=== PATIENT | female | born 1950 | race Caucasian/White ===

== ENCOUNTER 2017-07-06 01:39 | Emergency (ER) | payer OTHER ==
[2017-07-06 01:50] VITALS: BP 183/88
[2017-07-06] MEDS ORDERED: LORazepam 0.5 MG Tab PO ONE ×2 (01:58→02:38)
--- NOTE | 2017-07-06 02:42 | EDM.PDOC ---
ED HPI GENERAL MEDICAL PROBLEM - General Chief Complaint: Skin Complaint Stated Complaint: POSS LUMP ON RIGHT BREAST Time Seen by Provider: 07/06/17 01:56 Source of Information: Reports: Patient, RN Notes Reviewed - History of Present Illness INITIAL COMMENTS - FREE TEXT/NARRATIVE: 66-year-old female comes in with stress reaction, panic attack after discovering what appears to be a lump of her right breast a very short time ago. She notices a short time ago after or while showering. She is never noticed this before. There's been no discomfort. She does not do routine self breast exams nor has she ever had a mammogram because "there is no history of breast cancer my family". She has been feeling well recently with no unusual symptoms. However after discovering this lump of the right best she became extremely anxious did start having a panic attack triggering current visit to the ED. - Related Data Allergies Allergy/AdvReac Type Severity Reaction Status Date / Time Penicillins Allergy Vomiting Verified 07/06/17 01:48 Sulfa (Sulfonamide Allergy Hives Verified 12/25/13 21:09 Antibiotics) Home Meds: Home Meds Calcium Carbonate [Calcium] 600 mg PO DAILY 05/03/16 [History] Multivitamin [Multivitamins] 1 cap PO DAILY 05/03/16 [History] Past Medical History - Past Health History Medical/Surgical History: Denies Medical/Surgical History Psychiatric History: Reports: Panic Attack Social & Family History - Family History Family Medical History: Noncontributory - Tobacco Use Smoking Status *Q: Never Smoker Second Hand Smoke Exposure: No - Caffeine Use Caffeine Use: Reports: Coffee - Alcohol Use Days Per Week of Alcohol Use: 0 - Recreational Drug Use Recreational Drug Use: No ED ROS GENERAL - Review of Systems Review Of Systems: See Below Constitutional: Reports: No Symptoms HEENT: Reports: No Symptoms Respiratory: Reports: Shortness of Breath (No better) Cardiovascular: Denies: Chest Pain GI/Abdominal: Denies: Abdominal Pain, Nausea, Vomiting Musculoskeletal: Reports: No Symptoms Skin: Reports: No Symptoms Neurological: Reports: Dizziness (No better) ED EXAM, SKIN/RASH Exam: See Below General Appearance: Alert, Anxious (Improved from arrival to ED as short time ago) Head: Normocephalic, Facial Swelling Neck: Supple Respiratory/Chest: No Respiratory Distress, Lungs Clear, Other (On examination of the right breast there is a 1-2 cm area of increased density right lateral breast with slight dimpling visible, nontender., No other mass visible or palpable.) Cardiovascular: Regular Rate, Rhythm Extremities: Normal Inspection, Normal Range of Motion Neurological: Alert, Oriented, No Motor/Sensory Deficits Psychiatric: Anxious Skin: Warm, Dry, Normal Color Course - Vital Signs Last Recorded V/S: Last Vital Signs Temp 97.8 F 07/06/17 01:44 Pulse 68 07/06/17 01:44 Resp 18 07/06/17 01:44 BP 183/88 H 07/06/17 01:44 Pulse Ox 96 07/06/17 01:44 - Orders/Labs/Meds Meds: Medications Discontinued Medications Generic Name Dose Route Start Last Admin Trade Name Tien PRN Reason Stop Dose Admin Lorazepam 0.5 mg 07/06/17 01:58 07/06/17 02:04 Ativan PO 07/06/17 01:59 0.5 mg ONETIME ONE Administration Lorazepam 0.5 mg 07/06/17 02:38 07/06/17 02:45 Ativan PO 07/06/17 02:39 0.5 mg ONETIME ONE Administration - Re-Assessments/Exams Free Text/Narrative Re-Assessment/Exam: 07/06/17 03:11. We did give 0.5 mg Ativan by mouth initially. Appear more relaxed after that but states that she continues to feel very stressed and anxious, did not yet feel drowsy from that so did order another 0.5 mg to be dispensed and to give 0.25 mg orally now with the remaining 0.25 mg to go home with patient. Order for mammogram has been written. Discharge instructions as documented Departure - Departure Time of Disposition: 02:39 Disposition: Home, Self-Care 01 Condition: Fair Clinical Impression: Breast lump in female, Stress reaction, Panic attack - Discharge Information Instructions: Panic Attacks, [id number] Referrals: PCP,None [Primary Care Provider] - Forms: ED Department Discharge Additional Instructions: mamogram as soon as possible, Radiology will call you with a time for that this morning. ativan 0.25 mg 2 to 3 times daily for stress and anxiety, follow up with Dr Villarreal at our [facility] for results after your mamogram has been done. Call [phone] for appt. once you know when your mamogram will be done.
== END 2017-07-06 02:55 | disposition home or self-care (01) ==
LOC: JD.ED 01:39
DX: N63.10 Unspecified lump in the right breast, unspecified quadrant (principal); F43.0 Acute stress reaction; Z88.2 Allergy status to sulfonamides; Z79.899 Other long term (current) drug therapy; Z88.0 Allergy status to penicillin
CPT/HCPCS: 99283; A9270

== ENCOUNTER 2018-10-20 14:57 | Emergency (ER) | payer OTHER ==
[2018-10-20] MEDS ORDERED: Ketorolac 30 MG/ML SDV IM ONE (15:50)
[2018-10-20] MEDS ORDERED: Lidocaine 2% Jelly 10 ML Urojet MUCMEM ONE (15:51)
[2018-10-20] MEDS ORDERED: Diphtheria,Pertussis(Acell),Tetanus Vaccine 0.5 ML Syringe IM ONE (15:52)
--- NOTE | 2018-10-20 16:54 | CR ---
Right knee: Four views of the right knee were obtained. Comparison: No previous knee exam. Mildly comminuted and mildly displaced patellar fracture is seen. Fracture fragments are displaced up to 7 mm. Joint effusion is seen. Small osteophyte is seen off the lateral tibial margin. No additional abnormality is seen. Impression: 1. Patellar fracture and joint effusion. 2. Minimal degenerative change. Diagnostic code #3
--- NOTE | 2018-10-20 17:37 | EDM.PDOC ---
ED HPI GENERAL MEDICAL PROBLEM - General Chief Complaint: Lower Extremity Injury/Pain Stated Complaint: [facility] Time Seen by Provider: 10/20/18 15:15 Source of Information: Reports: Patient, Family History Limitations: Reports: No Limitations - History of Present Illness INITIAL COMMENTS - FREE TEXT/NARRATIVE: 68 yo F brought in via ambulance with comes in today for R knee pain s/ p fall. She states she was on the porch and tripped on a block and "rammed my knee into the seat of a patio chair". There was no twisting involved in the injury, just a straight fall on the patella. Her left knee also has some pain, but has only an abrasion. She says she feels "clicking and popping" with movement of the R knee and cannot bear weight. She currently rates her pain 5/ 10. She did not hurt anything else from the fall and did not have LOC or hit her head. No other symptoms at this time. She does not believe that her tetanus is UTD. Right Knee Pain Score (Numeric/FACES): 10 - Related Data Allergies Allergy/AdvReac Type Severity Reaction Status Date / Time Penicillins Allergy Vomiting Verified 10/20/18 15:06 Sulfa (Sulfonamide Allergy Hives Verified 10/20/18 15:06 Antibiotics) Home Meds: Home Meds Calcium Carbonate [Calcium] 600 mg PO DAILY 05/03/16 [History] Anastrozole [Arimidex] 1 mg PO DAILY 10/20/18 [History] Cholecalciferol (Vitamin D3) [Vitamin D3] 0 unit PO DAILY 10/20/18 [History] Zoledronic Acid in Water [Zometa 4 MG/100 ML] 4 mg IV ASDIRECTED 10/20/18 [ History] Past Medical History - Past Health History Medical/Surgical History: Denies Medical/Surgical History HEENT History: Reports: Impaired Vision Other HEENT History: wears contacts Respiratory History: Reports: Bronchitis, Recurrent Gastrointestinal History: Reports: GERD 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: Musculoskeletal History: Reports: Fracture Psychiatric History: Reports: Anxiety, Panic Attack Oncologic (Cancer) History: Reports: Breast - Infectious Disease History Infectious Disease History: Reports: Chicken Pox, Measles, Mumps Social & Family History - Family History Family Medical History: Noncontributory - Tobacco Use Smoking Status *Q: Never Smoker Second Hand Smoke Exposure: No - Caffeine Use Caffeine Use: Reports: Coffee, Soda - Recreational Drug Use Recreational Drug Use: No Review of Systems - Review of Systems Review Of Systems: ROS reveals no pertinent complaints other than HPI. ED EXAM, GENERAL - Physical Exam Exam: See Below Exam Limited By: No Limitations General Appearance: Alert, WD/WN, Mild Distress Eye Exam: Bilateral Eye: EOMI, Normal Inspection, PERRL Ears: Normal External Exam, Hearing Grossly Normal Head: Atraumatic, Normocephalic Neck: Normal Inspection, Supple, Non-Tender, Full Range of Motion Respiratory/Chest: No Respiratory Distress, Lungs Clear, Normal Breath Sounds, No Accessory Muscle Use, Chest Non-Tender Cardiovascular: Normal Peripheral Pulses, Regular Rate, Rhythm, No Edema, No Gallop, No JVD, No Murmur, No Rub Peripheral Pulses: 4+: Posterior Tibial (L), Posterior Tibial (R), Dorsalis Pedis (L), Dorsalis Pedis (R) Extremities: No Pedal Edema, Normal Capillary Refill, Joint Swelling (R knee), Limited Range of Motion (R knee), Increased Warmth (R knee), Redness (bilateral knees), Other (R knee TTP) Psychiatric: Normal Affect, Normal Mood Skin Exam: Warm, Dry, Intact, Erythema (R knee), Increased Warmth (R knee), Wound/Incision (abrasion to L knee), Other (edema to L knee) Course - Vital Signs Last Recorded V/S: Last Vital Signs Temp 97.9 F 10/20/18 17:55 Pulse 69 10/20/18 17:55 Resp 18 10/20/18 17:55 BP 161/71 H 10/20/18 17:55 Pulse Ox 98 10/20/18 17:55 - Orders/Labs/Meds Orders: Active Orders 24 hr Category Date Time Status Vaccines to be Administered [RC] PER UNIT ROUTINE Care 10/20/18 15:52 Active DME for Discharge [COMM] Routine Oth 10/20/18 17:32 Ordered Meds: Medications Discontinued Medications Generic Name Dose Route Start Last Admin Trade Name Freq PRN Reason Stop Dose Admin Diphtheria/Tetanus/Acell Pertussis 0.5 ml 10/20/18 15:52 10/20/18 16:25 Adacel IM 10/20/18 15:53 0.5 ml .ONCE ONE Administration Ketorolac Tromethamine 30 mg 10/20/18 15:50 10/20/18 16:23 Toradol IM 10/20/18 15:51 30 mg ONETIME ONE Administration Lidocaine HCl 10 ml 10/20/18 15:51 10/20/18 16:10 Xylocaine 2% Jelly MUCMEM 10/20/18 15:52 10 ml ONETIME ONE Administration Oxycodone/Acetaminophen 1 tab 10/20/18 18:03 10/20/18 18:08 Percocet 325-5 Mg PO 10/20/18 18:04 1 tab ONETIME ONE Administration - Re-Assessments/Exams Free Text/Narrative Re-Assessment/Exam: 10/20/18 15:44 Knee 4V Xray ordered 10/20/18 15:50 Toradol ordered for pain 10/20/18 15:52 Tetanus shot ordered 10/20/18 16:24 Knee Xray shows patellar fracture and joint effusion per Dr. Vazquez. Also reviewed by Dr. Barney and myself. 10/20/18 17:32 Percocet given for pain as Toradol did not help At this time, she has a fracture and will need to follow up with Dr. Peck next week. She will be given a knee immobilizer brace and crutches for now. I explained everything to her and her and they state they understand. She will be discharged home and given prescription for Percocet for pain as needed. Departure - Departure Time of Disposition: 17:32 Disposition: Home, Self-Care 01 Condition: Fair Clinical Impression: Patella fracture - Discharge Information *PRESCRIPTION DRUG MONITORING PROGRAM REVIEWED*: Not Applicable *COPY OF PRESCRIPTION DRUG MONITORING REPORT IN PATIENT ZAC: Not Applicable Instructions: Crutch Use, Adult, [id number], How to Use a Knee Immobilizer, [id number], Patellar Fracture, Adult Referrals: Carrie Villarreal MD [Primary Care Provider] - Forms: ED Department Discharge Additional Instructions: You were seen in the ED today for R knee pain after fall. You were found to have an abrasion to the left knee as well, which was cleaned and bandaged while here. You Xray reveals that you have fractured your patella (knee cap). You will need to follow up with an orthopedic surgeon by next week for further evaluation and treatment. You can call to make an appointment with orthopedic Dr. Peck. In the meantime, wear your knee brace and keep from weight bearing with crutches. Recommend rest, ice, elevation and over the counter ibuprofen for pain/inflammation relief. Please return to ED if new or worsening symptoms. - My Orders Last 24 Hours: My Active Orders 10/20/18 15:52 Vaccines to be Administered [RC] PER UNIT ROUTINE 10/20/18 17:32 DME for Discharge [COMM] Routine - Assessment/Plan Last 24 Hours: My Active Orders 10/20/18 15:52 Vaccines to be Administered [RC] PER UNIT ROUTINE 10/20/18 17:32 DME for Discharge [COMM] Routine
[2018-10-20] MEDS ORDERED: Acetaminophen/oxyCODONE 325-5 MG Tab PO ONE (18:03)
[2018-10-20 18:38] VITALS: BP 161/71
== END 2018-10-20 18:00 | disposition home or self-care (01) ==
LOC: JD.ED 14:57
DX: S82.001A Unspecified fracture of right patella, initial encounter for closed fracture (principal); W18.09XA Striking against other object with subsequent fall, initial encounter; Z88.0 Allergy status to penicillin; Z88.2 Allergy status to sulfonamides; Z79.899 Other long term (current) drug therapy
CPT/HCPCS: 73564; 90471; 90700; 96372; 99284; A9270; J1885; 99283

== ENCOUNTER 2020-02-09 19:47 | Emergency (ER) | payer OTHER ==
[2020-02-09 20:20] VITALS: BP 173/93; PULSE 65
[2020-02-09] MEDS ORDERED: Hydrocortisone 1% Crm 30 GM Tube TOP PRN (20:57)
--- NOTE | 2020-02-09 20:57 | EDM.PDOC ---
ED HPI GENERAL MEDICAL PROBLEM - General Chief Complaint: Allergic Reaction Stated Complaint: LT EYE SWELLING/ALLERGIC REACTION Time Seen by Provider: 02/09/20 20:38 Source of Information: Reports: Patient History Limitations: Reports: No Limitations - History of Present Illness INITIAL COMMENTS - FREE TEXT/NARRATIVE: This is a 69-year-old female. Today she was outside digging in the dirt and then she felt an irritation to her left eye and so she scratched it with her finger that had dirt on it. She noted a few hours afterwards that her eyelid began to swell and the inner canthus of that left eye began to swell as well. After dinner when her looked at the swelling he told her they needed to come to the ER. She denies any drainage from her eye. She denies any eye irritation. Is just the lid in the inner canthus that is swollen. She has a history of being allergic to many things including molds and fungus and things that you find in the dirt. She denies any other acute symptoms. Left Eye Pain Score (Numeric/FACES): 5 - Related Data Allergies Allergy/AdvReac Type Severity Reaction Status Date / Time Penicillins Allergy Severe Vomiting Verified 02/09/20 20:20 Sulfa (Sulfonamide Allergy Severe Hives Verified 02/09/20 20:20 Antibiotics) Home Meds: Home Meds Calcium Carbonate [Calcium] 600 mg PO DAILY 05/03/16 [History] Anastrozole [Arimidex] 1 mg PO DAILY 10/20/18 [History] Cholecalciferol (Vitamin D3) [Vitamin D3] 0 unit PO DAILY 10/20/18 [History] Zoledronic Acid in Water [Zometa 4 MG/100 ML] 4 mg IV ASDIRECTED 10/20/18 [History] Past Medical History - Past Health History Medical/Surgical History: Denies Medical/Surgical History HEENT History: Reports: Impaired Vision Other HEENT History: wears contacts Respiratory History: Reports: Bronchitis, Recurrent Gastrointestinal History: Reports: GERD 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: Musculoskeletal History: Reports: Fracture Psychiatric History: Reports: Anxiety, Panic Attack Oncologic (Cancer) History: Reports: Breast - Infectious Disease History Infectious Disease History: Reports: Chicken Pox, Measles, Mumps Social & Family History - Family History Family Medical History: Noncontributory - Tobacco Use Smoking Status *Q: Never Smoker Second Hand Smoke Exposure: No - Caffeine Use Caffeine Use: Reports: Coffee, Tea - Recreational Drug Use Recreational Drug Use: No ED ROS ALLERGIC REACTION - Review of Systems Review Of Systems: See Below Constitutional: Denies: Fever, Chills HEENT: Reports: Other (Left eyelid swelling) Respiratory: Denies: Shortness of Breath, Cough Cardiovascular: Denies: Chest Pain Endocrine: Reports: No Symptoms GI/Abdominal: Denies: Abdominal Pain : Reports: No Symptoms Musculoskeletal: Reports: No Symptoms Skin: Reports: Other (As per HPI) Neurological: Reports: No Symptoms Psychiatric: Reports: No Symptoms Hematologic/Lymphatic: Reports: No Symptoms ED EXAM GENERAL NO PERIP PULSE - Physical Exam Exam: See Below Exam Limited By: No Limitations General Appearance: Alert, WD/WN, No Apparent Distress Eye Exam: Left Eye: Other (She has a swollen upper lid and slightly swollen underneath the eye and also in the inner canthus. It looks like an allergic reaction because there is no inflammation. The eye itself appears to be clear with no obvious discharge and she denies any change in her vision.) Ears: Normal External Exam Nose: Normal Inspection Throat/Mouth: No Airway Compromise Head: Normocephalic Neck: Supple Respiratory/Chest: No Respiratory Distress Back Exam: Full Range of Motion Extremities: Normal Inspection, Normal Range of Motion Neurological: Alert, Oriented Psychiatric: Normal Affect, Normal Mood Skin Exam: Warm, Dry Course - Vital Signs Last Recorded V/S: Last Vital Signs Temp 98.3 F 02/09/20 20:14 Pulse 65 02/09/20 20:14 Resp 20 02/09/20 20:14 BP 173/93 H 02/09/20 20:14 Pulse Ox 98 02/09/20 20:14 - Orders/Labs/Meds Orders: Active Orders 24 hr Category Date Time Status Hydrocortisone [Hydrocortisone 1% Crm] Med 02/09/20 20:57 Ordered 30 gm TOP ASDIRECTED PRN Medication Orders Hydrocortisone (Hydrocortisone 1% Crm) 30 gm TOP ASDIRECTED PRN PRN Reason: Rash Last Admin: 02/09/20 21:05 Dose: 1 gm Documented by: LJ Meds: Medications Generic Name Dose Route Start Last Admin Trade Name Freq PRN Reason Stop Dose Admin Hydrocortisone 30 gm 02/09/20 20:57 02/09/20 21:05 Hydrocortisone 1% Crm TOP 1 gm ASDIRECTED PRN Administration Rash Discontinued Medications Generic Name Dose Route Start Last Admin Trade Name Tien PRN Reason Stop Dose Admin Hydrocortisone Confirm 02/09/20 21:01 Hydrocortisone 1% Crm Administered 02/09/20 21:02 Dose 30 gm TOP .STK-MED ONE - Re-Assessments/Exams Free Text/Narrative Re-Assessment/Exam: 02/09/20 21:07 I got 1% hydrocortisone cream and gently coated the swollen tissues but did not get in her eye. We thereafter placed a eye patch and some hypoallergenic tape to keep the patch on. She knows to take the patch off in the morning and to not rub her eye because it will cause the swelling to occur again. Departure - Departure Time of Disposition: 21:07 Disposition: Home, Self-Care 01 Condition: Good Clinical Impression: Swelling of left eyelid Contact dermatitis Qualifiers: Contact dermatitis type: allergic Contact dermatitis trigger: unspecified trigger Qualified Code(s): L23.9 - Allergic contact dermatitis, unspecified cause - Discharge Information *PRESCRIPTION DRUG MONITORING PROGRAM REVIEWED*: Not Applicable *COPY OF PRESCRIPTION DRUG MONITORING REPORT IN PATIENT ZAC: Not Applicable Instructions: Contact Dermatitis, [id number] Referrals: PCP,None [Primary Care Provider] - Forms: ED Department Discharge Additional Instructions: The eye patch on for overnight and then take it off in the morning, try not to rub your eye tomorrow because then it will swell again, recheck with your family doctor this coming week or return to the ER if needed Sepsis Event Note (ED) - Evaluation Sepsis Screening Result: No Definite Risk - Focused Exam Vital Signs: Vital Signs Temp Pulse Resp BP Pulse Ox 02/09/20 20:14 98.3 F 65 20 173/93 H 98 - My Orders Last 24 Hours: My Active Orders 02/09/20 20:57 Hydrocortisone [Hydrocortisone 1% Crm] 30 gm TOP ASDIRECTED PRN - Assessment/Plan Last 24 Hours: My Active Orders 02/09/20 20:57 Hydrocortisone [Hydrocortisone 1% Crm] 30 gm TOP ASDIRECTED PRN
[2020-02-09] MEDS ORDERED: Hydrocortisone 1% Crm 30 GM Tube TOP ONE (21:01)
== END 2020-02-09 21:18 | disposition home or self-care (01) ==
LOC: JD.ED 19:47
DX: L23.9 Allergic contact dermatitis, unspecified cause (principal); H02.89 Other specified disorders of eyelid; Z88.0 Allergy status to penicillin; Z88.2 Allergy status to sulfonamides; Z79.899 Other long term (current) drug therapy
CPT/HCPCS: 99283; A9270

== ENCOUNTER 2020-09-27 17:05 | Emergency (ER) | payer OTHER ==
[2020-09-27 17:20] VITALS: BP 187/103; PULSE 81
--- NOTE | 2020-09-27 20:30 | EDM.PDOC ---
ED HPI GENERAL MEDICAL PROBLEM - General Chief Complaint: Lower Extremity Injury/Pain Stated Complaint: LEG CRAMP Time Seen by Provider: 09/27/20 17:30 Source of Information: Reports: Patient, RN Notes Reviewed - History of Present Illness INITIAL COMMENTS - FREE TEXT/NARRATIVE: 70 yr old female comes in with R leg pain, swelling and bruising. She injured the leg in hinduism 5 days ago stepping down a step. She had sudden onset of pain at the time but pain, bruising and swelling has worsened over the past 3 days. Mild pain at rest, more severe pain with walking and wt bearing. No chest pain or difficulty breathing. Right Leg Pain Score (Numeric/FACES): 7 - Related Data Allergies Allergy/AdvReac Type Severity Reaction Status Date / Time Sulfa (Sulfonamide Allergy Severe Hives Verified 09/27/20 17:20 Antibiotics) Penicillins AdvReac Severe Vomiting Verified 09/27/20 17:20 Home Meds: Home Meds Calcium Carbonate [Calcium] 600 mg PO DAILY 05/03/16 [History] Anastrozole [Arimidex] 1 mg PO DAILY 10/20/18 [History] Cholecalciferol (Vitamin D3) [Vitamin D3] 0 unit PO DAILY 10/20/18 [History] Zoledronic Acid in Water [Zometa 4 MG/100 ML] 4 mg IV ASDIRECTED 10/20/18 [History] Cyclobenzaprine [Flexeril] 10 mg PO TID 09/27/20 [History] Past Medical History - Past Health History Medical/Surgical History: Denies Medical/Surgical History HEENT History: Reports: Impaired Vision Other HEENT History: wears contacts Respiratory History: Reports: Bronchitis, Recurrent Gastrointestinal History: Reports: GERD 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 Social & Family History - Family History Family Medical History: No Pertinent Family History - Tobacco Use Tobacco Use Status *Q: Never Tobacco User - Caffeine Use Caffeine Use: Reports: Coffee - Recreational Drug Use Recreational Drug Use: No Review of Systems - Review of Systems Review Of Systems: See Below Constitutional: Denies: Chills, Diaphoresis, Fever Respiratory: Denies: Shortness of Breath, Pleuritic Chest Pain Cardiovascular: Denies: Chest Pain GI/Abdominal: Denies: Abdominal Pain, Nausea, Vomiting Musculoskeletal: Reports: Leg Pain Skin: Reports: Bruising (R ant. and post leg) Neurological: Denies: Numbness, Tingling, Weakness ED EXAM, GENERAL - Physical Exam Exam: See Below General Appearance: Alert, No Apparent Distress (at rest) Head: Atraumatic Neck: Supple Respiratory/Chest: No Respiratory Distress, Lungs Clear, Normal Breath Sounds Cardiovascular: Regular Rate, Rhythm Extremities: Leg Pain (there is mild diffuse swelling of her R proximal lower leg, very mild bruising ant and post lower leg just below the knee, knee itself is nontender). No: Increased Warmth, Redness Skin Exam: Warm, Dry Course - Vital Signs Last Recorded V/S: Last Vital Signs Temp 97.6 F 09/27/20 17:17 Pulse 81 09/27/20 17:17 Resp 16 09/27/20 17:17 BP 187/103 H 09/27/20 17:17 Pulse Ox 97 09/27/20 17:17 - Orders/Labs/Meds Orders: Active Orders 24 hr Category Date Time Status VL Duplex Lwr Ext Veins Ltd Rt [US] Stat Exams 09/27/20 17:44 Taken Labs: Laboratory Tests 09/27/20 09/27/20 Range/Units 18:00 18:00 WBC 6.59 (3.98-10.04) K/mm3 RBC 4.68 (3.98-5.22) M/mm3 Hgb 13.7 D (11.2-15.7) gm/dl Hct 40.5 (34.1-44.9) % MCV 86.5 (79.4-94.8) fl MCH 29.3 (25.6-32.2) pg MCHC 33.8 (32.2-35.5) g/dl RDW Std Deviation 39.5 (36.4-46.3) fL Plt Count 372 H (182-369) K/mm3 MPV 9.4 (9.4-12.3) fl Neut % (Auto) 58.9 (34.0-71.1) % Lymph % (Auto) 25.2 (19.3-51.7) % Cottle % (Auto) 11.1 (4.7-12.5) % Eos % (Auto) 4.1 (0.7-5.8) Baso % (Auto) 0.5 (0.1-1.2) % Neut # (Auto) 3.89 (1.56-6.13) K/mm3 Lymph # (Auto) 1.66 (1.18-3.74) K/mm3 Cottle # (Auto) 0.73 H (0.24-0.36) K/mm3 Eos # (Auto) 0.27 (0.04-0.36) K/mm3 Baso # (Auto) 0.03 (0.01-0.08) K/mm3 Sodium 144 (136-145) mEq/L Potassium 3.9 (3.5-5.1) mEq/L Chloride 106 (98-107) mEq/L Carbon Dioxide 26 (21-32) mEq/L Anion Gap 15.9 H (5-15) BUN 14 (7-18) mg/dL Creatinine 0.9 (0.55-1.02) mg/dL Est Cr Clr Drug Dosing 46.00 mL/min Estimated GFR (MDRD) > 60 (>60) mL/min BUN/Creatinine Ratio 15.6 (14-18) Glucose 89 (80-115) mg/dL Calcium 9.3 (8.5-10.1) mg/dL Total Bilirubin 1.3 H (0.2-1.0) mg/dL AST 19 (15-37) U/L ALT 23 (14-59) U/L Alkaline Phosphatase 71 (46-116) U/L Total Protein 7.3 (6.4-8.2) g/dl Albumin 3.8 (3.4-5.0) g/dl Globulin 3.5 gm/dL Albumin/Globulin Ratio 1.1 (1-2) - Re-Assessments/Exams Free Text/Narrative Re-Assessment/Exam: 09/27/20 20:35 US of R lower leg shows no evidence for DVT, labs all relatively nl, discharge instr. as documented. Departure - Departure Time of Disposition: 20:28 Disposition: Home, Self-Care 01 Condition: Fair Clinical Impression: Muscle strain, Leg pain, right - Discharge Information Referrals: PCP,None [Primary Care Provider] - Forms: ED Department Discharge Additional Instructions: Marshall wrap R lower extrem. Elevate as much as possible and continue with frequent ice packs the next few days. Use walker when able until pain and swel ling resolving. Tylenol as needed. Follow up clinic in about 10 days for recheck. Return to ED as needed if symptoms worsening in any way. Sepsis Event Note (ED) - Evaluation Sepsis Screening Result: No Definite Risk - Focused Exam Vital Signs: Vital Signs Temp Pulse Resp BP Pulse Ox 09/27/20 17:17 97.6 F 81 16 187/103 H 97 - My Orders Last 24 Hours: My Active Orders 09/27/20 17:44 VL Duplex Lwr Ext Veins Ltd Rt [US] Stat - Assessment/Plan Last 24 Hours: My Active Orders 09/27/20 17:44 VL Duplex Lwr Ext Veins Ltd Rt [US] Stat
--- NOTE | 2020-09-29 09:26 | US ---
Right lower extremity deep venous ultrasound: Duplex and color Doppler evaluation was obtained of the right common femoral, proximal greater saphenous, superficial femoral, popliteal, tibial and peroneal veins. Left common femoral vein was also evaluated. Comparison: No prior venous imaging is available. Findings: Abnormality is noted within the medial right knee and calf with measurements of 10.4 x 2.3 x 4.7 cm. This could represent a mixed old hematoma but could also represent a mass. Deep veins show normal phasic flow, augmentation and compression. Impression: 1. Findings within the medial calf and knee. If this finding is acute, repeat ultrasound could be obtained in 3-4 months. If this has been present for a more extended time, MRI (without and with intravenous contrast) is recommended. 2. No findings of deep venous thrombosis within the right lower extremity or within the left common femoral vein. 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
== END 2020-09-27 20:36 | disposition home or self-care (01) ==
LOC: JD.ED 17:05
DX: S86.911A Strain of unspecified muscle(s) and tendon(s) at lower leg level, right leg, initial encounter (principal); E66.9 Obesity, unspecified; Z68.33 Body mass index [BMI] 33.0-33.9, adult; Z88.2 Allergy status to sulfonamides; Z88.0 Allergy status to penicillin; Z79.899 Other long term (current) drug therapy
CPT/HCPCS: 36415; 80053; 85025; 93971-26-RT; 93971-RT; 99283; 99284-25

== ENCOUNTER 2021-02-03 06:58 | Emergency (ER) | payer OTHER, MEDICARE ==
[2021-02-03 07:21] VITALS: BP 144/75; PULSE 66
[2021-02-03] MEDS ORDERED: Sodium Chloride 0.9% 10 ML Syringe FLUSH PRN (07:27)
--- NOTE | 2021-02-03 07:28 | EDM.PDOC ---
ED HPI GENERAL MEDICAL PROBLEM - General Chief Complaint: Cardiovascular Problem Stated Complaint: LIGHTHEADED/HIGH BP Time Seen by Provider: 02/03/21 07:27 Source of Information: Reports: Patient, RN Notes Reviewed - History of Present Illness INITIAL COMMENTS - FREE TEXT/NARRATIVE: 70 yr old female comes in with severe stress/anxiety. She has been stressed out about her 's health which turned out to be OK and now stressed out about her ill dog. Has been feeling some palpitations. Chest feels heavy and tight. Not feeling well in general for about the past week. No known hx of CAD, Htn other current medical problems. Previous hx breast cancer. She is feeling stressed enough that she has been having some suicidal thoughts. No plan. She really does not want to . She does feel she needs help beyond what she can do for herself. She also has only been sleeping about "2 hrs a night". Chest Pain Score (Numeric/FACES): 3 - Related Data Allergies Allergy/AdvReac Type Severity Reaction Status Date / Time Sulfa (Sulfonamide Allergy Severe Hives Verified 02/03/21 07:14 Antibiotics) Penicillins AdvReac Severe Vomiting Verified 02/03/21 07:14 Home Meds: Home Meds Calcium Carbonate [Calcium] 600 mg PO DAILY 05/03/16 [History] Anastrozole [Arimidex] 1 mg PO DAILY 10/20/18 [History] Cholecalciferol (Vitamin D3) [Vitamin D3] 0 unit PO DAILY 10/20/18 [History] Zoledronic Acid in Water [Zometa 4 MG/100 ML] 4 mg IV ASDIRECTED 10/20/18 [History] LORazepam [Ativan] 0.5 mg PO Q12HR #14 tablet 02/03/21 [Rx] Past Medical History - Past Health History Medical/Surgical History: Denies Medical/Surgical History HEENT History: Reports: Impaired Vision Other HEENT History: wears contacts Respiratory History: Reports: Bronchitis, Recurrent Gastrointestinal History: Reports: GERD 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 Social & Family History - Family History Family Medical History: No Pertinent Family History - Caffeine Use Caffeine Use: Reports: Coffee ED ROS GENERAL - Review of Systems Review Of Systems: See Below Constitutional: Denies: Fever, Chills HEENT: Reports: No Symptoms Respiratory: Denies: Shortness of Breath Cardiovascular: Reports: Chest Pain, Palpitations Endocrine: Reports: Fatigue GI/Abdominal: Denies: Abdominal Pain, Nausea, Vomiting Musculoskeletal: Reports: No Symptoms Skin: Reports: No Symptoms Neurological: Reports: No Symptoms ED EXAM, GENERAL - Physical Exam Exam: See Below General Appearance: Alert, Anxious, Mild Distress Throat/Mouth: Normal Inspection Head: Other (Slight swelling, bruising upper mid forhead from "hitting my head against the wall") Neck: Supple Respiratory/Chest: No Respiratory Distress, Lungs Clear, Normal Breath Sounds Cardiovascular: Regular Rate, Rhythm Extremities: Normal Inspection, Normal Range of Motion Neurological: Alert, Oriented, No Motor/Sensory Deficits Psychiatric: Normal Affect, Normal Mood, Anxious Skin Exam: Warm, Dry, Normal Color #1 Interpretation EKG Date: 02/03/21 Rhythm: NSR [place]: Normal P-Wave: Present QRS: Normal ST-T: Normal Course - Vital Signs Last Recorded V/S: Last Vital Signs Temp 96.7 F L 02/03/21 07:10 Pulse 66 02/03/21 07:10 Resp 16 02/03/21 07:10 BP 144/75 H 02/03/21 07:10 Pulse Ox 95 02/03/21 07:10 - Orders/Labs/Meds Orders: Active Orders 24 hr Category Date Time Status Peripheral IV Care [RC] . DIRECTED Care 02/03/21 07:28 Active Chest 1V Frontal [CR] Stat Exams 02/03/21 07:28 Taken Sodium Chloride 0.9% [Saline Flush] Med 02/03/21 07:27 Active 10 ml FLUSH ASDIRECTED PRN Peripheral IV Insertion Adult [OM.PC] Stat Oth 02/03/21 07:28 Ordered EKG 12 Lead [EK] Stat Ther 02/03/21 07:27 Ordered Medication Orders Sodium Chloride (Sodium Chloride 0.9% 10 Ml Syringe) 10 ml FLUSH ASDIRECTED PRN PRN Reason: Keep Vein Open Last Admin: 02/03/21 07:39 Dose: 10 ml Documented by: JAKE Labs: Laboratory Tests 02/03/21 02/03/21 02/03/21 Range/Units 07:35 07:35 07:35 WBC 5.45 (3.98-10.04) K/mm3 RBC 5.01 (3.98-5.22) M/mm3 Hgb 14.9 (11.2-15.7) gm/dl Hct 43.3 (34.1-44.9) % MCV 86.4 (79.4-94.8) fl MCH 29.7 (25.6-32.2) pg MCHC 34.4 (32.2-35.5) g/dl RDW Std Deviation 40.6 (36.4-46.3) fL Plt Count 324 (182-369) K/mm3 MPV 9.6 (9.4-12.3) fl Neut % (Auto) 71.5 H (34.0-71.1) % Lymph % (Auto) 16.1 L (19.3-51.7) % [place] % (Auto) 9.4 (4.7-12.5) % Eos % (Auto) 2.4 (0.7-5.8) Baso % (Auto) 0.6 (0.1-1.2) % Neut # (Auto) 3.90 (1.56-6.13) K/mm3 Lymph # (Auto) 0.88 L (1.18-3.74) K/mm3 [place] # (Auto) 0.51 H (0.24-0.36) K/mm3 Eos # (Auto) 0.13 (0.04-0.36) K/mm3 Baso # (Auto) 0.03 (0.01-0.08) K/mm3 Sodium 145 (136-145) mEq/L Potassium 4.1 (3.5-5.1) mEq/L Chloride 109 H (98-107) mEq/L Carbon Dioxide 24 (21-32) mEq/L Anion Gap 16.1 H (5-15) BUN 14 (7-18) mg/dL Creatinine 1.0 (0.55-1.02) mg/dL Est Cr Clr Drug Dosing 41.40 mL/min Estimated GFR (MDRD) 55 (>60) mL/min BUN/Creatinine Ratio 14.0 (14-18) Glucose 105 H (70-99) mg/dL Calcium 8.7 (8.5-10.1) mg/dL Total Bilirubin 1.9 H (0.2-1.0) mg/dL AST 23 (15-37) U/L ALT 25 (14-59) U/L Alkaline Phosphatase 61 (46-116) U/L Troponin I < 0.017 (0.00-0.056) ng/mL Total Protein 7.1 (6.4-8.2) g/dl Albumin 3.8 (3.4-5.0) g/dl Globulin 3.3 gm/dL Albumin/Globulin Ratio 1.2 (1-2) TSH 3rd Generation 1.521 (0.358-3.74) uIU/mL Meds: Medications Generic Name Dose Route Start Last Admin Trade Name Freq PRN Reason Stop Dose Admin Sodium Chloride 10 ml 02/03/21 07:27 02/03/21 07:39 Sodium Chloride 0.9% 10 Ml Syringe FLUSH 10 ml ASDIRECTED PRN Administration Keep Vein Open Discontinued Medications Generic Name Dose Route Start Last Admin Trade Name Freq PRN Reason Stop Dose Admin Lorazepam 0.5 mg 02/03/21 07:34 02/03/21 07:45 Lorazepam 0.5 Mg Tab PO 02/03/21 07:35 0.5 mg ONETIME ONE Administration - Re-Assessments/Exams Free Text/Narrative Re-Assessment/Exam: 02/03/21 09:11 Occasional PAC's on the moniter, EKG, trop nl. Her stress, anxiety, depression to the point of suicidal thoughts is the main problem/concern. As noted she has no plan, does not really want to . She also is not sleeping well which is not helping. She has not seen a counselor or Psychiatrist any time recently. She does actively exercise. Have given 0.5 mg ativan and that does seem to be helping. I have discussed transfer for inpatient eval. vs going home on ativan bid and get set up for telemed psych consult. She feels safe to go home and would prefer to do that. Discharge instr. as documented. Departure - Departure Time of Disposition: 08:59 Disposition: Home, Self-Care 01 Clinical Impression: Stress and adjustment reaction, Suicidal ideation Depression Qualifiers: Depression Type: unspecified Qualified Code(s): F32.9 - Major depressive disorder, single episode, unspecified Insomnia Qualifiers: Insomnia type: unspecified Qualified Code(s): G47.00 - Insomnia, unspecified Prescriptions: LORazepam [Ativan] 0.5 mg PO Q12HR #14 tablet Instructions: Adjustment Disorder, Adult Referrals: PCP,None [Primary Care Provider] - Forms: ED Department Discharge Additional Instructions: You have been given ativan 0.5 mg orally here in the ED. Continue that twice daily for now. If it does start making you too drowsy during the day go to 1/2 or even a 1/4 tablet in the morning. Continue the 0.5 mg in the evening to help you sleep. Prescription has been sent to [facility]. Telephone Psych. consult with Dr Kline, Psychiatrist strongly recomended. Call [phone] tomorrow AM to get that set up next available appointment. You can also go to [facility] 8 AM any morning Wednesday through Wednesday for open enrollment for local counseling, further help and treatment. Return to ED at any time for any escalation of suicidal thoughts and for personal safety as needed. Sepsis Event Note (ED) - Evaluation Sepsis Screening Result: No Definite Risk - Focused Exam Vital Signs: Vital Signs Temp Pulse Resp BP Pulse Ox 02/03/21 07:10 96.7 F L 66 16 144/75 H 95 - My Orders Last 24 Hours: My Active Orders 02/03/21 07:27 Sodium Chloride 0.9% [Saline Flush] 10 ml FLUSH ASDIRECTED PRN EKG 12 Lead [EK] Stat 02/03/21 07:28 Peripheral IV Care [RC] . DIRECTED Chest 1V Frontal [CR] Stat Peripheral IV Insertion Adult [OM.PC] Stat - Assessment/Plan Last 24 Hours: My Active Orders 02/03/21 07:27 Sodium Chloride 0.9% [Saline Flush] 10 ml FLUSH ASDIRECTED PRN EKG 12 Lead [EK] Stat 02/03/21 07:28 Peripheral IV Care [RC] . DIRECTED Chest 1V Frontal [CR] Stat Peripheral IV Insertion Adult [OM.PC] Stat
[2021-02-03] MEDS ORDERED: LORazepam 0.5 MG Tab PO ONE (07:34)
--- NOTE | 2021-02-03 13:08 | CR ---
Chest: Portable view of the chest was obtained. Comparison: Prior chest x-ray of 05/17/14. Heart size and mediastinum are normal. Lungs are clear with no acute parenchymal change. Degenerative change is seen within the left shoulder which is an interval change from prior chest x-ray. Impression: 1. 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 2. Nothing acute is appreciated on portable chest x-ray. Diagnostic code #2
== END 2021-02-03 09:10 | disposition home or self-care (01) ==
LOC: JD.ED 06:58
DX: F43.9 Reaction to severe stress, unspecified (principal); F43.20 Adjustment disorder, unspecified; G47.00 Insomnia, unspecified; E66.9 Obesity, unspecified; Z68.31 Body mass index [BMI] 31.0-31.9, adult; Z88.2 Allergy status to sulfonamides; Z88.0 Allergy status to penicillin; Z79.899 Other long term (current) drug therapy
CPT/HCPCS: 36415; 71045; 80053; 84443; 84484; 85025; 93005; 99285; A9270; 93010; 99284

== ENCOUNTER 2022-01-25 18:25 | Emergency (ER) | payer OTHER, MEDICARE ==
[2022-01-25 18:44] VITALS: BP 172/86; PULSE 77
[2022-01-25] MEDS ORDERED: Sodium Chloride 0.9% 10 ML Syringe FLUSH PRN (19:09)
[2022-01-25 19:50] LABS: ESTIMATED GFR 68 mL/min (>60)
[2022-01-25] MEDS ORDERED: Ondansetron 4 MG/2 ML SDV IVPUSH ONE (19:53)
[2022-01-25] MEDS ORDERED: Sodium Chloride 0.9% 1,000 ML IV STA (19:53)
[2022-01-25] MEDS ORDERED: Ketorolac 30 MG/ML SDV IVPUSH ONE (19:54)
[2022-01-25] MEDS ORDERED: HYDROmorphone 0.5 MG/0.5 ML Syringe IVPUSH ONE (21:52)
== END 2022-01-25 22:43 | disposition home or self-care (01) ==
LOC: JD.ED 18:25
DX: D27.0 Benign neoplasm of right ovary (principal); D25.9 Leiomyoma of uterus, unspecified; K21.9 Gastro-esophageal reflux disease without esophagitis; E66.9 Obesity, unspecified; Z68.31 Body mass index [BMI] 31.0-31.9, adult; Z88.2 Allergy status to sulfonamides; Z88.0 Allergy status to penicillin
CPT/HCPCS: 36415; 74177; 76830; 80053; 81001; 85025; 86140; 96361; 96374; 96375; 99284; J1170; J1885; J2405; J3490; J7030

== ENCOUNTER 2022-01-26 18:51 | Emergency (ER) | payer OTHER, MEDICARE ==
[2022-01-26 19:13] VITALS: BP 184/78; PULSE 107
[2022-01-26] MEDS ORDERED: Sodium Chloride 0.9% 10 ML Syringe FLUSH PRN (19:51)
[2022-01-26] MEDS ORDERED: Ketorolac 30 MG/ML SDV IVPUSH ONE (19:52)
[2022-01-26] MEDS ORDERED: HYDROmorphone 0.5 MG/0.5 ML Syringe IVPUSH ONE (19:52)
[2022-01-26] MEDS ORDERED: Sodium Chloride 0.9% 1,000 ML IV SCH (20:00)
[2022-01-26 20:53] LABS: ESTIMATED GFR 68 mL/min (>60)
[2022-01-26] MEDS ORDERED: Ondansetron 4 MG/2 ML SDV IVPUSH ONE (20:56)
== END 2022-01-26 21:48 | disposition home or self-care (01) ==
LOC: JD.ED 18:51
DX: D27.0 Benign neoplasm of right ovary (principal); K21.9 Gastro-esophageal reflux disease without esophagitis; E66.9 Obesity, unspecified; Z68.30 Body mass index [BMI] 30.0-30.9, adult; Z88.0 Allergy status to penicillin
CPT/HCPCS: 36415; 74018; 80053; 83690; 85025; 96374; 96375; 99284; J1170; J1885; J2405; J3490; J7030

== ENCOUNTER 2022-03-10 07:20 | Day surgery (SDC) | payer OTHER, MEDICARE ==
[~2022-03-10 07:20] MED LIST: Lactated Ringers 1,000 ML IV SCH; Lidocaine 1%/Sod Bicarbonate in NS 8.4% 1 ML Syringe IDERM PRN; Sodium Chloride 0.9% 10 ML Syringe FLUSH PRN; Sodium Chloride 0.9% 10 ML Syringe FLUSH SCH
[2022-03-10] MEDS ORDERED: Lidocaine 1% with EPINEPHrine 1:100,000 20 ML MDV ONE (08:43)
[2022-03-10] MEDS ORDERED: Bupivacaine 0.5% 30 ML SDV ONE (08:43)
[2022-03-10] MEDS ORDERED: Rocuronium 50 MG/5 ML Vial ONE (08:45)
[2022-03-10] MEDS ORDERED: fentaNYL 250 MCG/5 ML SDV ONE (08:45)
[2022-03-10] MEDS ORDERED: Ondansetron 4 MG/2 ML SDV ONE (08:45)
[2022-03-10] MEDS ORDERED: Propofol 200 MG/20 ML SDV ONE (08:45)
[2022-03-10] MEDS ORDERED: Lidocaine 1% 2 ML ONE (08:46)
[2022-03-10] MEDS ORDERED: Scopolamine 1.5 MG Transdermal Patch TOP ONE (09:30)
[2022-03-10] MEDS ORDERED: Sugammadex Sodium 200 MG/2 ML VIAL ONE (10:07)
[2022-03-10] MEDS ORDERED: ceFAZolin 2 GM Vial ONE (10:07)
[2022-03-10] MEDS ORDERED: fentaNYL 100 MCG/2 ML SDV IVPUSH PRN (10:17)
[2022-03-10] MEDS ORDERED: HYDROmorphone 0.5 MG/0.5 ML Syringe IVPUSH PRN (10:17)
[2022-03-10] MEDS ORDERED: Ondansetron 4 MG/2 ML SDV IVPUSH PRN (10:17)
[2022-03-10] MEDS ORDERED: traMADol 50 MG Tab PO ONE (12:15)
[2022-03-10] MEDS ORDERED: Acetaminophen/oxyCODONE 325-5 MG Tab PO ONE (12:30)
[2022-03-10 13:22] VITALS: PULSE 60
[2022-03-10 14:47] VITALS: BP 116/86
== END 2022-03-10 15:30 | disposition home or self-care (01) ==
LOC: JD.SDS 07:20
PROVIDERS: ATTEND Obstetrics & Gynecology
DX: D25.1 Intramural leiomyoma of uterus (principal); D25.2 Subserosal leiomyoma of uterus; D28.2 Benign neoplasm of uterine tubes and ligaments; D27.1 Benign neoplasm of left ovary; N72 Inflammatory disease of cervix uteri; N87.9 Dysplasia of cervix uteri, unspecified; N80.0 Endometriosis of uterus; N83.8 Other noninflammatory disorders of ovary, fallopian tube and broad ligament; I10 Essential (primary) hypertension; F41.9 Anxiety disorder, unspecified; R00.0 Tachycardia, unspecified; G43.909 Migraine, unspecified, not intractable, without status migrainosus; F90.9 Attention-deficit hyperactivity disorder, unspecified type; K21.9 Gastro-esophageal reflux disease without esophagitis; E66.9 Obesity, unspecified; Z79.83 Long term (current) use of bisphosphonates; Z79.811 Long term (current) use of aromatase inhibitors; Z79.891 Long term (current) use of opiate analgesic; Z79.2 Long term (current) use of antibiotics; Z79.52 Long term (current) use of systemic steroids; Z88.0 Allergy status to penicillin; Z88.2 Allergy status to sulfonamides; Z91.018 Allergy to other foods; Z91.011 Allergy to milk products; Z91.048 Other nonmedicinal substance allergy status; Z98.890 Other specified postprocedural states; Z68.32 Body mass index [BMI] 32.0-32.9, adult; Z85.3 Personal history of malignant neoplasm of breast
CPT/HCPCS: 36415; 58552; 80048; 85025; 86850; 86900; 86901; 93005; A9270; J0690; J2405; J2704; J3010; J3490; J7120; 00944; 99100

== ENCOUNTER 2022-05-01 16:22 | Emergency (ER) | payer OTHER, MEDICARE | END 2022-05-01 20:00 | disposition left against medical advice (07) | LOC: JD.ED 16:22 | DX: Z53.21 Procedure and treatment not carried out due to patient leaving prior to being seen by health care provider (principal) ==

== ENCOUNTER 2023-04-21 23:31 | Emergency (ER) | payer BC, MEDICARE ==
[2023-04-22] MEDS ORDERED: Ketorolac 60 MG/2 ML SDV IM ONE (00:43)
[2023-04-22 01:36] VITALS: BP 136/88; PULSE 70
== END 2023-04-22 01:15 | disposition home or self-care (01) ==
LOC: JD.ED 23:31
DX: S83.91XA Sprain of unspecified site of right knee, initial encounter (principal); Z87.891 Personal history of nicotine dependence; Z91.048 Other nonmedicinal substance allergy status; Z88.1 Allergy status to other antibiotic agents; Z91.018 Allergy to other foods; Z91.011 Allergy to milk products; Z88.0 Allergy status to penicillin; Z79.899 Other long term (current) drug therapy; X50.9XXA Other and unspecified overexertion or strenuous movements or postures, initial encounter
CPT/HCPCS: 73562; 96372; 99283; J1885

== ENCOUNTER 2023-06-13 07:54 | Emergency (ER) | payer BC, MEDICARE ==
[2023-06-13] MEDS ORDERED: Sodium Chloride 0.9% 10 ML Syringe FLUSH PRN (08:37)
[2023-06-13] MEDS ORDERED: Diclofenac Sodium 1% Gel 100 GM Tube TOP ONE (08:37)
[2023-06-13 09:22] LABS: BASOPHILS PERCENT AUTO 1.1 % (0.0-1.0); EOSINOPHILS PERCENT AUTO 3.8 % (0.0-6.0); HEMATOCRIT 40.8 % (37.0-47.0); HEMOGLOBIN 13.2 gm/dl (12.0-16.0); IMMATURE GRAN PERCENT AUTO 0.3 % (0.0-0.4); LYMPHOCYTES PERCENT AUTO 14.6 % (24.0-44.0); MEAN CORPUSCULAR HGB CONC 32.4 g/dl (32.0-36.0); MEAN CORPUSCULAR VOLUME 86.4 fl (83.0-99.0); MEAN PLATELET VOLUME 8.6 fl (9.4-12.3); MONOCYTES PERCENT AUTO 10.2 % (0.0-8.0); NEUTROPHILS ABSOLUTE AUTO 4.5 K/mm3 (1.8-7.7); PLATELET COUNT,PLT 380 K/mm3 (150-400); RED BLOOD CELL COUNT 4.72 M/mm3 (4.10-5.30); WHITE BLOOD CELL COUNT,WBC 6.38 K/mm3 (3.9-11.3)
[2023-06-13 09:23] LABS: BASOPHILS ABSOLUTE AUTO 0.1 K/mm3 (0.0-0.2); EOSINOPHILS ABSOLUTE AUTO 0.2 K/mm3 (0.0-0.4); IMMATURE GRAN ABSOLUTE AUTO 0.02 K/mm3 (0.00-0.05); LYMPHOCYTES ABSOLUTE AUTO 0.9 K/mm3 (1.0-4.8); MONOCYTES ABSOLUTE AUTO 0.7 K/mm3 (0.0-0.8)
[2023-06-13 09:44] LABS: A/G RATIO 0.8 (1-2); ALBUMIN 3.3 g/dl (3.4-5.0); ANION GAP 14.9 (5-15); BILIRUBIN TOTAL 0.8 mg/dL (0.2-1.0); BUN/CREATININE RATIO 17.8 (14-18); CALCIUM 9.2 mg/dL (8.5-10.1); CREATININE 0.9 mg/dL (0.55-1.02); EST CRCL DRUG DOSING (CG) 42.64 mL/min; POTASSIUM,K 3.9 mEq/L (3.5-5.1); PROTEIN TOTAL,TP 7.3 g/dl (6.4-8.2)
[2023-06-13 10:12] LABS: APPEARANCE,URINE CLEAR (Clear); BILIRUBIN,URINE NEGATIVE (Negative); COLOR,URINE YELLOW (Yellow); GLUCOSE,URINE NEGATIVE (Negative); KETONES,URINE 1+ (Negative); LEUKOCYTE ESTERASE,URINE 1+ (Negative); NITRITE,URINE NEGATIVE (Negative); OCCULT BLOOD,URINE TRACE-INTACT (Negative); PROTEIN,URINE TRACE (Negative); UROBILINOGEN,URINE 0.2 (0.2-1.0)
[2023-06-13 10:22] LABS: BACTERIA,URINE MODERATE /hpf (FEW); MUCUS,URINE MODERATE /hpf (FEW)
[2023-06-13 11:26] VITALS: BP 169/98; PULSE 66
== END 2023-06-13 10:20 | disposition home or self-care (01) ==
LOC: JD.ED 07:54
DX: M94.0 Chondrocostal junction syndrome [Tietze] (principal); Z86.16 Personal history of COVID-19; Z88.0 Allergy status to penicillin; Z88.2 Allergy status to sulfonamides; Z88.8 Allergy status to other drugs, medicaments and biological substances; Z91.048 Other nonmedicinal substance allergy status; Z91.018 Allergy to other foods
CPT/HCPCS: 36415; 71046; 80053; 81001; 83735; 84484; 85025; 93005; 99285; A9270; 93010; 99283

== ENCOUNTER 2024-02-18 06:40 | Emergency (ER) | payer BC, MEDICARE ==
[2024-02-18] MEDS ORDERED: Lactated Ringers 1,000 ML ONE (07:23)
[2024-02-18] MEDS ORDERED: LORazepam 2 MG/ML SDV ONE (07:23)
[2024-02-18] MEDS ORDERED: Metoclopramide 10 MG/2 ML SDV ONE (07:24)
[2024-02-18 11:56] LABS: BASOPHILS PERCENT AUTO 0.6 % (0.0-1.0); EOSINOPHILS ABSOLUTE AUTO 0.3 K/mm3 (0.0-0.4); EOSINOPHILS PERCENT AUTO 4.5 % (0.0-6.0); HEMATOCRIT 40.9 % (37.0-47.0); IMMATURE GRAN ABSOLUTE AUTO 0.02 K/mm3 (0.00-0.05); IMMATURE GRAN PERCENT AUTO 0.3 % (0.0-0.4); LYMPHOCYTES ABSOLUTE AUTO 1.2 K/mm3 (1.0-4.8); LYMPHOCYTES PERCENT AUTO 16.8 % (24.0-44.0); MEAN CORPUSCULAR HEMOGLOBIN 26.2 pg (28.0-32.0); MEAN CORPUSCULAR HGB CONC 31.8 g/dl (32.0-36.0); MEAN CORPUSCULAR VOLUME 82.3 fl (83.0-99.0); MEAN PLATELET VOLUME 9.2 fl (9.4-12.3); MONOCYTES ABSOLUTE AUTO 0.7 K/mm3 (0.0-0.8); MONOCYTES PERCENT AUTO 10.5 % (0.0-8.0); NEUTROPHILS ABSOLUTE AUTO 4.7 K/mm3 (1.8-7.7); NEUTROPHILS PERCENT AUTO 67.3 % (41.0-71.0); PLATELET COUNT,PLT 463 K/mm3 (150-400); RED BLOOD CELL COUNT 4.97 M/mm3 (4.10-5.30); WHITE BLOOD CELL COUNT,WBC 7.04 K/mm3 (3.9-11.3)
[2024-02-18 12:00] VITALS: BP 155/89; PULSE 70
[2024-02-18] MEDS: LORazepam 2 MG/ML SDV IVPUSH ONE (12:01)
[2024-02-18] MEDS: Metoclopramide 10 MG/2 ML SDV IVPUSH ONE (12:02)
[2024-02-18] MEDS: Lactated Ringers 1,000 ML IV ONE (12:02)
[2024-02-18 12:14] LABS: ANION GAP 12.5 (5-15); BUN/CREATININE RATIO 17.8 (14-18); CALCIUM 9.3 mg/dL (8.5-10.1); CREATININE 0.9 mg/dL (0.55-1.02); EST CRCL DRUG DOSING (CG) 44.03 mL/min; POTASSIUM,K 3.5 mEq/L (3.5-5.1)
[2024-02-18 12:15] LABS: A/G RATIO 0.8 (1-2); ALBUMIN 3.4 g/dl (3.4-5.0); PROTEIN TOTAL,TP 7.5 g/dl (6.4-8.2)
[2024-02-18 12:16] LABS: BILIRUBIN TOTAL 0.6 mg/dL (0.2-1.0); C-REACTIVE PROTEIN 5.5 mg/dL (<0.30)
[2024-02-18 12:23] LABS: APPEARANCE,URINE CLEAR (Clear); COLOR,URINE LIGHT YELLOW (Yellow); PH,URINE 6.5 (5.0-8.0); PROTEIN,URINE NEGATIVE (Negative)
[2024-02-18 12:24] LABS: BACTERIA,URINE FEW /hpf (FEW); BILIRUBIN,URINE NEGATIVE (Negative); EPITHELIAL CELLS,URINE 0-5 /hpf (0-5); GLUCOSE,URINE NEGATIVE (Negative); KETONES,URINE TRACE (Negative); LEUKOCYTE ESTERASE,URINE TRACE (Negative); MUCUS,URINE NOT SEEN /hpf (FEW); NITRITE,URINE NEGATIVE (Negative); OCCULT BLOOD,URINE NEGATIVE (Negative); RBC,URINE 0-5 /hpf (0-5); UROBILINOGEN,URINE 0.2 (0.2-1.0); WBC,URINE 0-5 /hpf (0-5)
== END 2024-02-18 09:11 | disposition home or self-care (01) ==
LOC: JD.ED 06:40
DX: H81.12 Benign paroxysmal vertigo, left ear (principal); R79.82 Elevated C-reactive protein (CRP); Z86.16 Personal history of COVID-19; Z90.710 Acquired absence of both cervix and uterus; Z88.2 Allergy status to sulfonamides; Z88.1 Allergy status to other antibiotic agents; Z91.018 Allergy to other foods; Z91.011 Allergy to milk products; Z91.048 Other nonmedicinal substance allergy status
CPT/HCPCS: 36415; 80053; 81001; 85025; 86140; 99284

== ENCOUNTER 2024-04-22 18:17 | Emergency (ER) | payer BC, MEDICARE ==
[2024-04-22 18:51] LABS: BASOPHILS ABSOLUTE AUTO 0.1 K/mm3 (0.0-0.2); BASOPHILS PERCENT AUTO 0.7 % (0.0-1.0); EOSINOPHILS ABSOLUTE AUTO 0.1 K/mm3 (0.0-0.4); EOSINOPHILS PERCENT AUTO 1.6 % (0.0-6.0); HEMATOCRIT 40.6 % (37.0-47.0); HEMOGLOBIN 13.1 gm/dl (12.0-16.0); IMMATURE GRAN ABSOLUTE AUTO 0.01 K/mm3 (0.00-0.05); IMMATURE GRAN PERCENT AUTO 0.1 % (0.0-0.4); LYMPHOCYTES ABSOLUTE AUTO 1.6 K/mm3 (1.0-4.8); MEAN CORPUSCULAR HEMOGLOBIN 26.1 pg (28.0-32.0); MEAN CORPUSCULAR HGB CONC 32.3 g/dl (32.0-36.0); MEAN CORPUSCULAR VOLUME 80.9 fl (83.0-99.0); MEAN PLATELET VOLUME 8.9 fl (9.4-12.3); MONOCYTES ABSOLUTE AUTO 0.7 K/mm3 (0.0-0.8); MONOCYTES PERCENT AUTO 9.7 % (0.0-8.0); NEUTROPHILS ABSOLUTE AUTO 4.9 K/mm3 (1.8-7.7); NEUTROPHILS PERCENT AUTO 65.9 % (41.0-71.0); PLATELET COUNT,PLT 430 K/mm3 (150-400); RED BLOOD CELL COUNT 5.02 M/mm3 (4.10-5.30); WHITE BLOOD CELL COUNT,WBC 7.44 K/mm3 (3.9-11.3)
[2024-04-22] MEDS: LORazepam 2 MG/ML SDV IVPUSH ONE (18:51)
[2024-04-22 19:23] LABS: A/G RATIO 0.9 (1-2); ALBUMIN 3.7 g/dl (3.4-5.0); ANION GAP 14.3 (5-15); BILIRUBIN TOTAL 0.9 mg/dL (0.2-1.0); CALCIUM 9.5 mg/dL (8.5-10.1); EST CRCL DRUG DOSING (CG) 39.63 mL/min; POTASSIUM,K 3.3 mEq/L (3.5-5.1); PROTEIN TOTAL,TP 7.8 g/dl (6.4-8.2); TSH 0.868 uIU/mL (0.358-3.74)
[2024-04-22 20:39] VITALS: BP 156/79; PULSE 60
== END 2024-04-22 20:15 | disposition home or self-care (01) ==
LOC: JD.ED 18:17
DX: F43.20 Adjustment disorder, unspecified (principal); R03.0 Elevated blood-pressure reading, without diagnosis of hypertension; Z88.0 Allergy status to penicillin; Z88.2 Allergy status to sulfonamides; Z91.048 Other nonmedicinal substance allergy status; Z91.011 Allergy to milk products; Z91.018 Allergy to other foods; Z79.899 Other long term (current) drug therapy; Z90.710 Acquired absence of both cervix and uterus; Z86.16 Personal history of COVID-19
CPT/HCPCS: 36415; 80053; 84443; 84484; 85025; 93005; 96374; 99283; J2060

== ENCOUNTER 2025-05-02 06:32 | Emergency (ER) | payer BC, MEDICARE ==
[2025-05-02] MEDS ORDERED: Adenosine 12 MG/4 ML SDV ONE (06:42)
[2025-05-02] MEDS ORDERED: Sodium Chloride 0.9% 10 ML Syringe FLUSH PRN (06:45)
[2025-05-02] MEDS: Diltiazem 25 MG/5 ML SDV IVPUSH ONE (06:48)
[2025-05-02] MEDS: Diltiazem 25 MG/5 ML SDV ONE (07:02)
[2025-05-02 07:06] LABS: BASOPHILS ABSOLUTE AUTO 0.1 K/mm3 (0.0-0.2); BASOPHILS PERCENT AUTO 0.8 % (0.0-1.0); EOSINOPHILS ABSOLUTE AUTO 0.4 K/mm3 (0.0-0.4); EOSINOPHILS PERCENT AUTO 4.6 % (0.0-6.0); IMMATURE GRAN ABSOLUTE AUTO 0.02 K/mm3 (0.00-0.05); IMMATURE GRAN PERCENT AUTO 0.3 % (0.0-0.4); LYMPHOCYTES ABSOLUTE AUTO 1.7 K/mm3 (1.0-4.8); LYMPHOCYTES PERCENT AUTO 21.7 % (24.0-44.0); MEAN PLATELET VOLUME 9.3 fl (9.4-12.3); MONOCYTES ABSOLUTE AUTO 0.8 K/mm3 (0.0-0.8); MONOCYTES PERCENT AUTO 10.4 % (0.0-8.0); NEUTROPHILS ABSOLUTE AUTO 4.9 K/mm3 (1.8-7.7); NEUTROPHILS PERCENT AUTO 62.2 % (41.0-71.0); NRBC ABSOLUTE 0.00 (0.00-0.02); NRBC PERCENT 0.0 % (0.0-0.2); PLATELET COUNT,PLT 408 K/mm3 (150-400); RED BLOOD CELL COUNT 5.34 M/mm3 (4.10-5.30); WHITE BLOOD CELL COUNT,WBC 7.85 K/mm3 (3.9-11.3)
[2025-05-02 07:07] VITALS: PULSE 114
[2025-05-02 07:32] LABS: A/G RATIO 1.0 (1-2); ALANINE AMINOTRANSFERASE,ALT 25.0 U/L (14-59); ASPARTATE AMNIOTRANSFERASE,AST 20.0 U/L (15-37); BILIRUBIN TOTAL 0.8 mg/dL (0.2-1.0); BLOOD UREA NITROGEN,BUN 18.0 mg/dL (7-18); CARBON DIOXIDE,CO2 24.0 mEq/L (21-32); CHLORIDE,CL 108.0 mEq/L (98-107); CREATININE 0.9 mg/dL (0.55-1.02); EST CRCL DRUG DOSING (CG) 43.37 mL/min; ESTIMATED GFR 67.0 mL/min (>60); GLUCOSE RANDOM 122.0 mg/dL (70-99); POTASSIUM,K 3.6 mEq/L (3.5-5.1); PROTEIN TOTAL,TP 7.4 g/dl (6.4-8.2); SODIUM,NA 144.0 mEq/L (136-145); TROPONIN I HIGH SENSITIVITY 9.0 pg/mL (<=51); TSH 2.196 uIU/mL (0.358-3.74)
[2025-05-02 19:52] VITALS: BP 156/66
== END 2025-05-02 10:25 | disposition home or self-care (01) ==
LOC: JD.ED 06:32
DX: I48.20 Chronic atrial fibrillation, unspecified (principal); F43.20 Adjustment disorder, unspecified; Z79.01 Long term (current) use of anticoagulants; Z88.2 Allergy status to sulfonamides; Z88.0 Allergy status to penicillin; Z91.09 Other allergy status, other than to drugs and biological substances; Z85.3 Personal history of malignant neoplasm of breast; Z86.16 Personal history of COVID-19; Z90.10 Acquired absence of unspecified breast and nipple; Z90.710 Acquired absence of both cervix and uterus; Z91.048 Other nonmedicinal substance allergy status; Z91.018 Allergy to other foods; Z91.0110 Allergy to milk products, unspecified
CPT/HCPCS: 36415; 71045; 80053; 83735; 84443; 84484; 85025; 93005; 93306; 96365; 96376; 99285; A9270; J1163; J3490; J7030; 93010; 99283